=== PATIENT | male | born 1950 | race Caucasian/White ===

== ENCOUNTER 2017-05-09 15:47 | Outpatient (CLI) | payer BC, OTHER | END 2017-05-09 15:48 | disposition home or self-care (01) | DRG 556 | LOC: CONVCARE 15:47 | PROVIDERS: ATTEND Orthopaedic Surgery | DX: M25.552 Pain in left hip (principal); M16.12 Unilateral primary osteoarthritis, left hip | CPT/HCPCS: 73501 ==